=== PATIENT | female | born 1995 | race Caucasian/White ===

== ENCOUNTER 2017-11-01 14:04 | Emergency (ER) | payer OTHER | END 2017-11-01 14:40 | disposition home or self-care (01) | LOC: FTE 14:04 → E/R 14:40 | DX: O99.89 Other specified diseases and conditions complicating pregnancy, childbirth and the puerperium (principal); R05 Cough; Z3A.15 15 weeks gestation of pregnancy | CPT/HCPCS: 99283; Z7502 ==